=== PATIENT | male | born 1960 | race Caucasian/White ===

== ENCOUNTER → 2021-08-28 10:56 | Outpatient (BNVA) | payer MEDICARE, SELFPAY | PROVIDERS: PCP Family Medicine; Visit Provider Nurse Practitioner Family | DX: M47.816 Spondylosis without myelopathy or radiculopathy, lumbar region (principal); E11.40 Type 2 diabetes mellitus with diabetic neuropathy, unspecified; E11.65 Type 2 diabetes mellitus with hyperglycemia; Z79.4 Long term (current) use of insulin; Z96.41 Presence of insulin pump (external) (internal) | CPT/HCPCS: 99202 ==

== ENCOUNTER 2021-09-11 12:21 | Outpatient (REF) | payer MEDICARE, SELFPAY ==
--- NOTE | ~2021-09-11 | MR_ITS ---
EXAMINATION: MR LUMBAR SPINE WITHOUT CONTRAST CLINICAL INFORMATION: Spinal cord stimulator. Diabetic neuropathy. COMPARISON: None available. TECHNIQUE: MRI of the lumbar spine was obtained using routine sequences without contrast. FINDINGS: Minimal degenerative pressure stenosis of L2 on L3. Otherwise, normal anatomic alignment. Advanced degenerative disc disease at L5-S1. Moderate degenerative disc disease at T11-T12, L2-L3, and L4-L5. Mild degenerative disc disease at all additional lumbar levels. Associated mixed Modic type discogenic endplate changes including minimal Modic type I discogenic edema at L2-L3, L4-L5, and L5-S1. No additional suspicious marrow edema. The vertebral body heights are largely maintained. The conus medullaris terminates at the level of L1. The distal spinal cord is normal in appearance. No significant abnormalities of the paraspinal musculature. Moderate distention of the urinary bladder. Otherwise, limited evaluation of the intra-abdominal structures without significant abnormalities. The abdominal aorta is of normal contour and caliber. AXIAL SPINAL LEVELS: L1-L2: Shallow diffuse disc bulge. There is mild bilateral facet joint arthropathy. There is no neural foraminal stenosis. There is no spinal canal stenosis. L2-L3: Mild diffuse disc bulge. There is mild bilateral facet joint arthropathy. There is mild left and no right neural foraminal stenosis. There is no spinal canal stenosis. L3-L4: Mild diffuse disc bulge with superimposed small left foraminal disc protrusion. There is moderate bilateral facet joint arthropathy. There is mild right and no left neural foraminal stenosis. There is no spinal canal stenosis. L4-L5: Mild diffuse disc bulge with superimposed right foraminal/extra-foraminal disc protrusion. There is moderate bilateral facet joint arthropathy. There is moderate right and mild left neural foraminal stenosis. There is stenosis of the right subarticular zone with no overt spinal canal stenosis centrally. L5-S1: Shallow diffuse disc bulge. There is moderate bilateral facet joint arthropathy. There is no neural foraminal stenosis. There is no spinal canal stenosis. MR/MR lumbar spine wo con IMPRESSION: Moderate multilevel degenerative spondyloarthropathy of the lumbar spine as described in detail above. Most notably, there is moderate right-sided neural foraminal stenosis at L4-L5. Stenosis of the right subarticular zone at L4-L5. No overt spinal canal stenosis centrally.
== END 2021-09-11 12:22 | disposition home or self-care (01) ==
LOC: HO.MRI 12:21
PROVIDERS: Visit Provider Nurse Practitioner Family
DX: E11.40 Type 2 diabetes mellitus with diabetic neuropathy, unspecified (principal); Z96.89 Presence of other specified functional implants
CPT/HCPCS: 72148

== ENCOUNTER → 2021-09-18 15:18 | Outpatient (BNVA) | payer MEDICARE, SELFPAY | PROVIDERS: PCP Family Medicine; Visit Provider Nurse Practitioner Family | DX: M47.816 Spondylosis without myelopathy or radiculopathy, lumbar region (principal); E11.40 Type 2 diabetes mellitus with diabetic neuropathy, unspecified; Z96.89 Presence of other specified functional implants | CPT/HCPCS: Q3014 ==

== ENCOUNTER 2024-07-25 10:42 | Outpatient (AMB) | payer MEDICARE, SELFPAY ==
--- NOTE | 2024-07-25 10:46 | A.OFFVIS_ITS ---
Vital Signs 07/25/24 10:50 Height 6 ft Weight 159 lb BMI 21.6 BP 146/76 H Blood Pressure Location Lt brachial Position Sitting Respiration 14 Pulse 101 H Pulse Source Pulse Oximeter Pulse Oximetry (%) 100 Oxygen Delivery Method Room Air Intake Visit Reasons: Sacroiliitis/Discuss SI Joint Fusion Intake Note: Patient comes in to discuss options was last seen 09/16/2021. Reports pain 07/17. Allergies No Known Allergies Allergy (Verified 07/25/24 10:52) HPI Comments Details: Chang is 64 years old gentleman who is back in our office after 3 years of absence. He was seen 3 years ago by nurse practitioner with complains on lower back pain and mild functioning spinal cord stimulator the spinal cord stimulator was established elsewhere. He stated that his spinal cord stimulator Nevro helped his pain. He was lost for the follow-up and apparently he went for [facility] where he received treatment for what I could decipher from his explanation as sacroiliac joint problems. Apparently he had sacroiliac joint injections and after that he received sacroiliac joint innervation radiofrequency ablation. He reported that while injections were somewhat helpful so radiofrequency ablation of sacroiliac joints aggravated his pain. He came to this office with intention to receive sacroiliac joint fusion. He was explained that there is the procedure of sacroiliac joint fusion which involves placement of 3 screws across the sacroiliac joints. He reports pain in the lower back with radiation into the bilateral lower extremities. He reports that pain is constant with frequent exacerbations. He reports the level of the pain is 9/10. His mobility is compromised he is unable to walk for long period of time. He also reports that he is suffering from bilateral peripheral neuropathy of bilateral feet which he relates to the diabetes. Apparently he had an MRI more than 5 years ago results of which dictated as below. At that time he did not have pain radiating down to bilateral lower extremities therefore this pain is new. Review of Systems Const All systems reviewed & are unremarkable except as noted in HPI and below ENT Reports Normal hearing present Card Reports no additional complaints Resp Reports no additional complaints GI Reports no additional complaints Reports no additional complaints Musc Reports as per HPI Neuro Reports Normal hearing present, Denies Abnormal speech present and Denies Sensory deficit (Neuro) Physical Exam Vital Signs: Last Vital Signs Pulse 101 H 07/25/24 10:50 Resp 14 07/25/24 10:50 BP 146/76 H 07/25/24 10:50 Pulse Ox 100 07/25/24 10:50 Oxygen Delivery Method Room Air 07/25/24 10:50 BMI result Body Mass Index 21.6 Const General: no acute distress Nutritional Appearance: thin and underweight Orientation/consciousness: patient oriented x3 Eyes General: appearance normal, both eyes and all related structures Pupils: Equal, round and reactive pupils present EOM: EOMs intact bilaterally Neck Neck: Yes full ROM Chest Chest palpation & inspection: normal inspection of the chest Resp Effort & Inspection: normal respiratory effort, able to speak in complete sentences, normal respiratory pattern, no audible wheezes and no cough Cardio Jugular venous distension: no JVD GI Inspection: Yes normal to inspection Back/Spine/Pelvis Other: Able to stand on bilateral tiptoes in bilateral feet. However reports subjective weakness in bilateral lower extremities and numbness in the feet. SLR is positive bilaterally, dorsiflexion of bilateral feet aggravate the pain in maximal - SLR position. Bilateral patellar reflexes are very sluggish. Reports pain with SLR radiating into the 1st toe bilaterally. Bilateral patellar reflexes are very sluggish. Valsalva maneuver aggravates his pain. Jeramy test is positive bilaterally. Gaenslen test is positive bilaterally. Fourteen finger test is positive bilaterally. Stinchfield test is positive bilaterally. Neuro General: patient oriented x3 and gait normal Cranial nerves: Yes CN's II-XII intact bilaterally, Yes Equal, round and reactive pupils present, Yes Normal hearing present and Yes Ability to bilaterally elevate shoulders present Speech: No Abnormal speech present Gait exam (Neuro): Normal gait present Motor exam (neuro): 5/5 motor strength present throughout Sensory Exam: No Sensory deficit (Neuro) Extrem General: No pedal edema Psych Speech and movement: Normal speech and movement present Affect: normal affect Attitude: cooperative Thought process: Normal thought process present Thought content: Normal thought content present Insight: Good insight present (Psych) Judgement: Good judgement present (Psych) Results Reviewed Results Reviewed: Lumbar Spine MRI AXIAL SPINAL LEVELS: L1-L2: Shallow diffuse disc bulge. There is mild bilateral facet joint arthropathy. There is no neural foraminal stenosis. There is no spinal canal stenosis. L2-L3: Mild diffuse disc bulge. There is mild bilateral facet joint arthropathy. There is mild left and no right neural foraminal stenosis. There is no spinal canal stenosis. L3-L4: Mild diffuse disc bulge with superimposed small left foraminal disc protrusion.? There is moderate bilateral facet joint arthropathy. There is mild right and no left neural foraminal stenosis. There is no spinal canal stenosis. L4-L5: Mild diffuse disc bulge with superimposed right foraminal/extra-foraminal disc protrusion.? There is moderate bilateral facet joint arthropathy. There is moderate right and mild left neural foraminal stenosis. There is stenosis of the right subarticular zone with no overt spinal canal stenosis centrally. L5-S1: Shallow diffuse disc bulge. There is moderate bilateral facet joint arthropathy. There is no neural foraminal stenosis. There is no spinal canal stenosis. Assessment & Plan Assessment & Plan (1) Diabetic neuropathy: Code(s): E11.40 - Type 2 diabetes mellitus with diabetic neuropathy, unspecified Category: Medical (2) Spondylosis of lumbar spine: Code(s): M47.816 - Spondylosis without myelopathy or radiculopathy, lumbar region Category: Medical (3) S/P insertion of spinal cord stimulator: Code(s): Z96.89 - Presence of other specified functional implants Category: Surgical (4) Sacroiliitis: Code(s): M46.1 - Sacroiliitis, not elsewhere classified Category: Medical (5) Sacroiliac joint dysfunction of both sides: Code(s): M53.3 - Sacrococcygeal disorders, not elsewhere classified Category: Medical (6) Pain of both sacroiliac joints: Code(s): M53.3 - Sacrococcygeal disorders, not elsewhere classified Category: Medical (7) Radiculopathy, lumbar region: Code(s): M54.16 - Radiculopathy, lumbar region Category: Medical (8) Disc degeneration, lumbar: Code(s): M51.36 - Other intervertebral disc degeneration, lumbar region Category: Medical (9) Chronic pain syndrome: Code(s): G89.4 - Chronic pain syndrome Category: Medical Plan Treatment of this patient presents a certain challenge because he is not a very good historian. He does not remember the procedures he was done with [facility]. He will sign medical information release note and we will obtain the procedures from the [facility]. Meanwhile we will schedule him for diagnostic sacroiliac joint injection to reject or support the theory of his pain at least partial is coming from sacroiliac joint. The physical exam is certainly supportive of that diagnosis. I also will send him for MRI of the lumbar spine because of the certain physical exam positive for bilateral radiculopathy. On previous MRI most of the changes concentrated at L4 L5 interval which is corresponding to today's physical exam. However that MRI was done more than 5 years ago and obviously his disease progressed to the worse. New appointment will be scheduled after diagnostic sacroiliac joint injection. Orders: Orders MR lumbar spine wo con Today M47.816 - Spondylosis without myelopathy or radiculopathy, lumbar region Patient Instructions: I here by testify that I spent 35 minutes in conversation with this patient as well as planning his care organizing this note evaluating prior records. Coding Level of Care Code Est Pt Level 4 (11093) Diagnoses Diabetic neuropathy E11.40 Spondylosis of lumbar spine M47.816 S/P insertion of spinal cord stimulator Z96.89 Sacroiliitis M46.1 Sacroiliac joint dysfunction of both sides M53.3 Pain of both sacroiliac joints M53.3 Radiculopathy, lumbar region M54.16 Disc degeneration, lumbar M51.36 Chronic pain syndrome G89.4
[2024-07-25 10:50] VITALS: BP 146/76; PULSE 101; RESP 14; O2SAT 100; BMI 21.6
== END 2024-07-25 11:07 | disposition home or self-care (01) ==
PROVIDERS: PCP Family Medicine; Visit Provider Anesthesiology
DX: E11.40 Type 2 diabetes mellitus with diabetic neuropathy, unspecified (principal); M47.816 Spondylosis without myelopathy or radiculopathy, lumbar region; Z96.89 Presence of other specified functional implants; M46.1 Sacroiliitis, not elsewhere classified; M53.3 Sacrococcygeal disorders, not elsewhere classified; M54.16 Radiculopathy, lumbar region; M51.36 Other intervertebral disc degeneration, lumbar region; G89.4 Chronic pain syndrome
CPT/HCPCS: 99214

== ENCOUNTER → 2024-07-25 10:42 | Outpatient (BNVA) | payer MEDICARE, BC, SELFPAY | PROVIDERS: PCP Family Medicine; Visit Provider Anesthesiology | DX: M47.816 Spondylosis without myelopathy or radiculopathy, lumbar region (principal); M46.1 Sacroiliitis, not elsewhere classified; M53.3 Sacrococcygeal disorders, not elsewhere classified; M54.16 Radiculopathy, lumbar region; M51.36 Other intervertebral disc degeneration, lumbar region; E11.40 Type 2 diabetes mellitus with diabetic neuropathy, unspecified; G89.4 Chronic pain syndrome; Z96.89 Presence of other specified functional implants | CPT/HCPCS: 99212 ==

== ENCOUNTER 2024-12-11 06:12 | Outpatient (REF) | payer MEDICARE, SELFPAY ==
--- NOTE | ~2024-12-11 | FL_ITS ---
EXAMINATION: FL GUIDANCE ONLY HISTORY: M53.3 - Sacrococcygeal disorders, not elsewhere classified COMPARISON: None available. TECHNIQUE: Fluoroscopy time: 0.3 minutes. Cumulative Dose: 2.73 mGy. DAP: 0.0382 mGym2 Images: 2. FINDINGS: Images demonstrate needles and contrast material in the regions of the bilateral sacroiliac joints. FL/FL guidance in treatment room IMPRESSION: Fluoroscopy during procedure. Please see procedure report for additional information. Electronically signed by: Livan Vera MD 12/11/2024 12:29 PM RICK PAULINO
== END 2024-12-11 06:13 | disposition home or self-care (01) ==
LOC: CF 06:12
PROVIDERS: Visit Provider Anesthesiology
DX: M53.3 Sacrococcygeal disorders, not elsewhere classified (principal); M47.816 Spondylosis without myelopathy or radiculopathy, lumbar region; M46.1 Sacroiliitis, not elsewhere classified; M54.16 Radiculopathy, lumbar region; G89.4 Chronic pain syndrome; E11.40 Type 2 diabetes mellitus with diabetic neuropathy, unspecified; Z96.89 Presence of other specified functional implants
CPT/HCPCS: 27096; J2003; J2795; Q9967

== ENCOUNTER 2024-12-11 09:14 | Outpatient (AMB) | payer MEDICARE, SELFPAY ==
[2024-12-11 09:29] VITALS: BP 109/68; PULSE 92; BMI 21.6
--- NOTE | 2024-12-11 09:29 | MHC.OFFVIS ---
Vital Signs 12/11/24 09:29 12/11/24 10:22 Height 6 ft Weight 159 lb BMI 21.6 BP 109/68 142/82 H Blood Pressure Location Lt brachial Position Sitting Respiration 16 Pulse 92 97 Pulse Source Palpation Pulse Oximeter Pulse Oximetry (%) 98 Oxygen Delivery Method Room Air Intake Visit Reasons: BILATERAL DIAGNOSTIC SIJ INJECTIONS Senior Management Consultant Required: No Allergies No Known Allergies Allergy (Verified 12/11/24 09:30) Medication List - Last Reconciled 12/11/24 by Alana Zamora, [employer] bupropion HCl XL 150 mg PO QAM diazepam 5 mg PO BID PRN diclofenac sodium 1% 2 grams topical QID PRN fentanyl 50 mcg/hr 1 patch transdermal Q48H ferrous gluconate 324 mg PO DAILY oxycodone ER (OxyContin) 30 mg PO TID pantoprazole 40 mg PO DAILY quetiapine 100 mg PO BEDTIME tamsulosin 0.8 mg PO DAILY Physical Exam Vital Signs: Last Vital Signs Pulse 97 12/11/24 10:22 Resp 16 12/11/24 10:22 BP 142/82 H 12/11/24 10:22 Pulse Ox 98 12/11/24 10:22 Oxygen Delivery Method Room Air 12/11/24 10:22 BMI result Body Mass Index 21.6 Assessment & Plan Assessment & Plan (1) Diabetic neuropathy: Code(s): E11.40 - Type 2 diabetes mellitus with diabetic neuropathy, unspecified Category: Medical (2) Spondylosis of lumbar spine: Code(s): M47.816 - Spondylosis without myelopathy or radiculopathy, lumbar region Category: Medical (3) S/P insertion of spinal cord stimulator: Code(s): Z96.89 - Presence of other specified functional implants Category: Surgical (4) Sacroiliitis: Code(s): M46.1 - Sacroiliitis, not elsewhere classified Category: Medical (5) Sacroiliac joint dysfunction of both sides: Code(s): M53.3 - Sacrococcygeal disorders, not elsewhere classified Category: Medical (6) Pain of both sacroiliac joints: Code(s): M53.3 - Sacrococcygeal disorders, not elsewhere classified Category: Medical Plan: Bilateral sacroiliac joint injection diagnostic. Informed consent was thoroughly explained to the patient before the procedure.? The patient came to the operating room.? He was positioned prone on operating table with a pillow under her abdomen.? Time-out was performed delineating correct site and side of the procedure, nature of the injection, name and date of of the patient. The lower back and upper buttocks of the patient was prepped with ChloraPrep and draped with sterile utility towels.? C-arm was brought over the operating field and picture of right sacroiliac joint was demonstrated on the screen. Tilting machine contralateral left 15 degrees from the midline the anterior portion of the silhouette of the joint was superimposed on posterior portion of the silhouette of the joint. The skin was anesthetized with mixture of ropivacaine 0.5% and lidocaine 2% one-to-one slightly medial to the silhouette of the sacroiliac joint. 22 gauge 3-1/2 inch spinal needle was inserted through the skin wheal and advanced to the sacroiliac joint. When tip of the needle entered the sacroiliac joint injection of the contrast performed delineating arthrogram. After that 4 cc of ropivacaine g was injected into the joint. Upon completion of the injection needle was removed and the procedure was repeated on the left side in the mirroring fashion. After the injection the needle was removed and sterile bandades were applied Patient tolerated the procedure well. Orders: (7) Radiculopathy, lumbar region: Code(s): M54.16 - Radiculopathy, lumbar region Category: Medical (8) Disc degeneration, lumbar: Code(s): M51.36 - Other intervertebral disc degeneration, lumbar region Category: Medical (9) Chronic pain syndrome: Code(s): G89.4 - Chronic pain syndrome Category: Medical Plan Treatment of this patient presents a certain challenge because he is not a very good historian. He does not remember the procedures he was done with [facility]. He will sign medical information release note and we will obtain the procedures from the [facility]. Meanwhile we will schedule him for diagnostic sacroiliac joint injection to reject or support the theory of his pain at least partial is coming from sacroiliac joint. The physical exam is certainly supportive of that diagnosis. I also will send him for MRI of the lumbar spine because of the certain physical exam positive for bilateral radiculopathy. On previous MRI most of the changes concentrated at L4 L5 interval which is corresponding to today's physical exam. However that MRI was done more than 5 years ago and obviously his disease progressed to the worse. New appointment will be scheduled after diagnostic sacroiliac joint injection. Orders: Orders FL guidance in treatment room Today M53.3 - Sacrococcygeal disorders, not elsewhere classified Coding Level of Care Code Procedure Only Diagnoses Diabetic neuropathy E11.40 Spondylosis of lumbar spine M47.816 S/P insertion of spinal cord stimulator Z96.89 Sacroiliitis M46.1 Sacroiliac joint dysfunction of both sides M53.3 Pain of both sacroiliac joints M53.3 Radiculopathy, lumbar region M54.16 Disc degeneration, lumbar M51.36 Chronic pain syndrome G89.4
[2024-12-11 10:22] VITALS: BP 142/82; PULSE 97; RESP 16; O2SAT 98
== END 2024-12-11 10:22 | disposition home or self-care (01) ==
LOC: HO.PMCPRC 09:14
PROVIDERS: PCP Family Medicine; Visit Provider Anesthesiology
DX: M46.1 Sacroiliitis, not elsewhere classified (principal); M53.3 Sacrococcygeal disorders, not elsewhere classified; E11.40 Type 2 diabetes mellitus with diabetic neuropathy, unspecified; M47.816 Spondylosis without myelopathy or radiculopathy, lumbar region; Z96.89 Presence of other specified functional implants; M54.16 Radiculopathy, lumbar region; M51.369 Other intervertebral disc degeneration, lumbar region without mention of lumbar back pain or lower extremity pain; G89.4 Chronic pain syndrome
CPT/HCPCS: 27096

== ENCOUNTER 2024-12-17 10:20 | Outpatient (AMB) | payer MEDICARE, SELFPAY ==
--- NOTE | 2024-12-17 10:25 | MHC.OFFVIS ---
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 He reports pain 10/10 before the procedure. He reports complete absence of pain immediately after the procedure. In fact the entire day after the injection patient felt no pain. He did not feel any pain on the day after the injection and only 3rd day after the injection he started to feel minimal pain 1-2 out of 10. He is diabetic and he is on insulin pump. I will schedule him for therapeutic sacroiliac joint injection. A possibility of treat his pain with cure on X PNS was discussed with the patient. Also possibility of sacroiliac joint stabilization with fusion exists for this patient. Prior: 64 years old gentleman who is back in our office after 3 years of absence. He was seen 3 years ago by nurse practitioner with complains on lower back pain and mild functioning spinal cord stimulator the spinal cord stimulator was established elsewhere. He stated that his spinal cord stimulator Nevro helped his pain. He was lost for the follow-up and apparently he went for [facility] where he received treatment for what I could decipher from his explanation as sacroiliac joint problems. Apparently he had sacroiliac joint injections and after that he received sacroiliac joint innervation radiofrequency ablation. He reported that while injections were somewhat helpful so radiofrequency ablation of sacroiliac joints aggravated his pain. He came to this office with intention to receive sacroiliac joint fusion. He was explained that there is the procedure of sacroiliac joint fusion which involves placement of 3 screws across the sacroiliac joints. He reports pain in the lower back with radiation into the bilateral lower extremities. He reports that pain is constant with frequent exacerbations. He reports the level of the pain is 9/10. His mobility is compromised he is unable to walk for long period of time. He also reports that he is suffering from bilateral peripheral neuropathy of bilateral feet which he relates to the diabetes. Apparently he had an MRI more than 5 years ago results of which dictated as below. At that time he did not have pain radiating down to bilateral lower extremities therefore this pain is new. Review of Systems Const All systems reviewed & are unremarkable except as noted in HPI and below ENT Reports Normal hearing present Neuro Reports Normal hearing present, Denies Abnormal speech present and Denies Sensory deficit (Neuro) Physical Exam Vital Signs: Last Vital Signs Pulse 105 H 12/17/24 10:27 Resp 16 12/17/24 10:27 BP 107/51 L 12/17/24 10:27 Pulse Ox 100 12/17/24 10:27 Oxygen Delivery Method Room Air 12/17/24 10:27 BMI result Body Mass Index 21.6 Const General: no acute distress Nutritional Appearance: thin and underweight Orientation/consciousness: patient oriented x3 Eyes General: appearance normal, both eyes and all related structures Pupils: Equal, round and reactive pupils present EOM: EOMs intact bilaterally Neck Neck: Yes full ROM Chest Chest palpation & inspection: normal inspection of the chest Resp Effort & Inspection: normal respiratory effort, able to speak in complete sentences, normal respiratory pattern, no audible wheezes and no cough Cardio Jugular venous distension: no JVD GI Inspection: Yes normal to inspection Back/Spine/Pelvis Other: Able to stand on bilateral tiptoes in bilateral feet. However reports subjective weakness in bilateral lower extremities and numbness in the feet. SLR is positive bilaterally, dorsiflexion of bilateral feet aggravate the pain in maximal - SLR position. Bilateral patellar reflexes are very sluggish. Reports pain with SLR radiating into the 1st toe bilaterally. Bilateral patellar reflexes are very sluggish. Valsalva maneuver aggravates his pain. Jeramy test is positive bilaterally. Gaenslen test is positive bilaterally. Fourteen finger test is positive bilaterally. Stinchfield test is positive bilaterally. Neuro General: patient oriented x3 and gait normal Cranial nerves: Yes CN's II-XII intact bilaterally, Yes Equal, round and reactive pupils present, Yes Normal hearing present and Yes Ability to bilaterally elevate shoulders present Speech: No Abnormal speech present Gait exam (Neuro): Normal gait present Motor exam (neuro): 5/5 motor strength present throughout Sensory Exam: No Sensory deficit (Neuro) Extrem General: No pedal edema Psych Speech and movement: Normal speech and movement present Affect: normal affect Attitude: cooperative Thought process: Normal thought process present Thought content: Normal thought content present Insight: Good insight present (Psych) Judgement: Good judgement present (Psych) Assessment & Plan Assessment & Plan (1) Diabetic neuropathy: Code(s): E11.40 - Type 2 diabetes mellitus with diabetic neuropathy, unspecified Category: Medical (2) Spondylosis of lumbar spine: Code(s): M47.816 - Spondylosis without myelopathy or radiculopathy, lumbar region Category: Medical (3) S/P insertion of spinal cord stimulator: Code(s): Z96.89 - Presence of other specified functional implants Category: Surgical (4) Sacroiliitis: Code(s): M46.1 - Sacroiliitis, not elsewhere classified Category: Medical (5) Sacroiliac joint dysfunction of both sides: Code(s): M53.3 - Sacrococcygeal disorders, not elsewhere classified Category: Medical (6) Pain of both sacroiliac joints: Code(s): M53.3 - Sacrococcygeal disorders, not elsewhere classified Category: Medical (7) Radiculopathy, lumbar region: Code(s): M54.16 - Radiculopathy, lumbar region Category: Medical (8) Disc degeneration, lumbar: Code(s): M51.36 - Other intervertebral disc degeneration, lumbar region Category: Medical (9) Chronic pain syndrome: Code(s): G89.4 - Chronic pain syndrome Category: Medical Plan Excellent results of the diagnostic sacroiliac joint injection. It is absolutely clear now that his main problem is sacroiliitis and sacroiliac joint dysfunction bilaterally. Treatment of the sacroiliac joint injection with steroids can not be attempted for this patient once. If it will be prolonged and reliable pain relief we can continue repeating those injections. However if the pain will return in short period of time treatment with sacroiliac joint fusion versus sacroiliac joint innervation stimulation can not be discussed with the patient. I do not believe the patient needs MRI now. I will cancel this order. Coding Level of Care Code Est Pt Level 3 (14634) Diagnoses Diabetic neuropathy E11.40 Spondylosis of lumbar spine M47.816 S/P insertion of spinal cord stimulator Z96.89 Sacroiliitis M46.1 Sacroiliac joint dysfunction of both sides M53.3 Pain of both sacroiliac joints M53.3 Radiculopathy, lumbar region M54.16 Disc degeneration, lumbar M51.36 Chronic pain syndrome G89.4
[2024-12-17 10:27] VITALS: BP 107/51; PULSE 105; RESP 16; O2SAT 100; BMI 21.6
== END 2024-12-17 10:44 | disposition home or self-care (01) ==
PROVIDERS: PCP Family Medicine; Visit Provider Anesthesiology
DX: E11.40 Type 2 diabetes mellitus with diabetic neuropathy, unspecified (principal); M47.816 Spondylosis without myelopathy or radiculopathy, lumbar region; Z96.89 Presence of other specified functional implants; M46.1 Sacroiliitis, not elsewhere classified; M53.3 Sacrococcygeal disorders, not elsewhere classified; M54.16 Radiculopathy, lumbar region; M51.369 Other intervertebral disc degeneration, lumbar region without mention of lumbar back pain or lower extremity pain; G89.4 Chronic pain syndrome
CPT/HCPCS: 99213

== ENCOUNTER → 2024-12-17 10:20 | Outpatient (BNVA) | payer MEDICARE, SELFPAY | PROVIDERS: PCP Family Medicine; Visit Provider Anesthesiology | DX: E11.40 Type 2 diabetes mellitus with diabetic neuropathy, unspecified (principal); M47.816 Spondylosis without myelopathy or radiculopathy, lumbar region; M46.1 Sacroiliitis, not elsewhere classified; M53.3 Sacrococcygeal disorders, not elsewhere classified; M54.16 Radiculopathy, lumbar region; M51.360 Other intervertebral disc degeneration, lumbar region with discogenic back pain only; G89.4 Chronic pain syndrome; Z96.89 Presence of other specified functional implants | CPT/HCPCS: 99212 ==

== ENCOUNTER 2025-02-19 06:27 | Outpatient (REF) | payer MEDICARE, SELFPAY ==
--- NOTE | ~2025-02-19 | FL_ITS ---
EXAMINATION: FL GUIDANCE ONLY HISTORY: M53.3 - Sacrococcygeal disorders, not elsewhere classified COMPARISON: None available. TECHNIQUE: Fluoroscopy time: 0.2 minutes. Cumulative Dose: 1.59 mGy. DAP: 0.0149 mGym2 Images: 4. FINDINGS: Images demonstrate needles and contrast material in the regions of the bilateral sacroiliac joints. FL/FL guidance in treatment room IMPRESSION: Fluoroscopy during procedure. Please see procedure report for additional information. Electronically signed by: Livan Vera MD 02/19/2025 12:38 PM EDT
== END 2025-02-19 06:28 | disposition home or self-care (01) ==
LOC: CF 06:27
PROVIDERS: Visit Provider Anesthesiology
DX: M53.3 Sacrococcygeal disorders, not elsewhere classified (principal); M46.1 Sacroiliitis, not elsewhere classified; G89.4 Chronic pain syndrome
CPT/HCPCS: 27096; J2003; J2795; J3301; Q9967

== ENCOUNTER 2025-02-19 10:24 | Outpatient (AMB) | payer MEDICARE, SELFPAY ==
[2025-02-19 10:27] VITALS: BP 132/68; PULSE 107; RESP 16; O2SAT 100
--- NOTE | 2025-02-19 10:27 | A.OFFVIS_ITS ---
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 Allergies No Known Allergies Allergy (Verified 02/19/25 10:28) Medication List - Last Reconciled 02/19/25 by Sheri Mcclure LPN bupropion HCl XL 150 mg PO QAM diazepam 5 mg PO BID PRN diclofenac sodium 1% 2 grams topical QID PRN ferrous gluconate 324 mg PO DAILY oxycodone ER (OxyContin) 30 mg PO TID pantoprazole 40 mg PO DAILY quetiapine 100 mg PO BEDTIME tamsulosin 0.8 mg PO DAILY Physical Exam Vital Signs: Last Vital Signs Pulse 107 H 02/19/25 10:27 Resp 16 02/19/25 10:27 BP 132/68 02/19/25 10:27 Pulse Ox 100 02/19/25 10:27 Oxygen Delivery Method Room Air 02/19/25 10:27 Assessment & Plan Assessment & Plan (1) Diabetic neuropathy: Code(s): E11.40 - Type 2 diabetes mellitus with diabetic neuropathy, unspecified Category: Medical (2) Spondylosis of lumbar spine: Code(s): M47.816 - Spondylosis without myelopathy or radiculopathy, lumbar region Category: Medical (3) S/P insertion of spinal cord stimulator: Code(s): Z96.89 - Presence of other specified functional implants Category: Surgical (4) Sacroiliitis: Code(s): M46.1 - Sacroiliitis, not elsewhere classified Category: Medical (5) Sacroiliac joint dysfunction of both sides: Code(s): M53.3 - Sacrococcygeal disorders, not elsewhere classified Category: Medical (6) Pain of both sacroiliac joints: Code(s): M53.3 - Sacrococcygeal disorders, not elsewhere classified Category: Medical Plan: Bilateral sacroiliac joint injection therapeutic. Informed consent was thoroughly explained to the patient before the procedure.? The patient came to the operating room.? He was positioned prone on operating table with a pillow under her abdomen.? Time-out was performed delineating correct site and side of the procedure, nature of the injection, name and date of of the patient. The lower back and upper buttocks of the patient was prepped with ChloraPrep and draped with sterile utility towels.? C-arm was brought over the operating field and picture of right sacroiliac joint was demonstrated on the screen. Tilting machine contralateral left 15 degrees from the midline the anterior portion of the silhouette of the joint was superimposed on posterior portion of the silhouette of the joint. The skin was anesthetized with mixture of ropivacaine 0.5% and lidocaine 2% one-to-one slightly medial to the silhouette of the sacroiliac joint. 22 gauge 3-1/2 inch spinal needle was inserted through the skin wheal and advanced to the sacroiliac joint. When tip of the needle entered the sacroiliac joint injection of the contrast performed delineating arthrogram. After that 4 cc of ropivacaine mixed with kenalog 40 mg was injected into the joint. Upon completion of the injection needle was removed and the procedure was repeated on the left side in the mirroring fashion.total dose of kenalog was 80 mg. After the injection the needle was removed and sterile bandades were applied Patient tolerated the procedure well. (7) Radiculopathy, lumbar region: Code(s): M54.16 - Radiculopathy, lumbar region Category: Medical (8) Disc degeneration, lumbar: Code(s): M51.36 - Other intervertebral disc degeneration, lumbar region Category: Medical (9) Chronic pain syndrome: Code(s): G89.4 - Chronic pain syndrome Category: Medical Plan Treatment of this patient presents a certain challenge because he is not a very good historian. He does not remember the procedures he was done with [facility]. He will sign medical information release note and we will obtain the procedures from the [facility]. Meanwhile we will schedule him for diagnostic sacroiliac joint injection to r eject or support the theory of his pain at least partial is coming from sacroiliac joint. The physical exam is certainly supportive of that diagnosis. I also will send him for MRI of the lumbar spine because of the certain physical exam positive for bilateral radiculopathy. On previous MRI most of the changes concentrated at L4 L5 interval which is corresponding to today's physical exam. However that MRI was done more than 5 years ago and obviously his disease progressed to the worse. New appointment will be scheduled after diagnostic sacroiliac joint injection. Orders: Orders FL guidance in treatment room Today M53.3 - Sacrococcygeal disorders, not elsewhere classified Coding Level of Care Code Procedure Only Diagnoses Diabetic neuropathy E11.40 Spondylosis of lumbar spine M47.816 S/P insertion of spinal cord stimulator Z96.89 Sacroiliitis M46.1 Sacroiliac joint dysfunction of both sides M53.3 Pain of both sacroiliac joints M53.3 Radiculopathy, lumbar region M54.16 Disc degeneration, lumbar M51.36 Chronic pain syndrome G89.4
[2025-02-19 10:45] VITALS: BP 131/77; PULSE 111; RESP 16; O2SAT 100
== END 2025-02-19 10:45 | disposition home or self-care (01) ==
LOC: HO.PMCPRC 10:24
PROVIDERS: Visit Provider Anesthesiology
DX: M46.1 Sacroiliitis, not elsewhere classified (principal); M53.3 Sacrococcygeal disorders, not elsewhere classified; E11.40 Type 2 diabetes mellitus with diabetic neuropathy, unspecified; M47.816 Spondylosis without myelopathy or radiculopathy, lumbar region; Z96.89 Presence of other specified functional implants; M54.16 Radiculopathy, lumbar region; M51.369 Other intervertebral disc degeneration, lumbar region without mention of lumbar back pain or lower extremity pain; G89.4 Chronic pain syndrome
CPT/HCPCS: 27096